=== PATIENT | male | born 1940 | race Caucasian/White ===

== ENCOUNTER 2018-12-04 09:32 | Outpatient (CLI) | payer OTHER ==
--- NOTE | 2018-12-04 11:38 | PET ---
EXAM: PET CT skull to mid thigh COMPARISON: None HISTORY: Lung mass/lung cancer TECHNIQUE: A PET/CT was performed from the skull to the mid thigh after administration of 11.9 millic uries of F-18 FDG. Evaluation was performed on a [employer] workstation. FINDINGS: NECK: No areas of hypermetabolic activity CHEST: 7.4 cm right hilar mass has a max SUV value of 19.2. Right upper lobe peripheral pulmonary nodule measuring 1.1 cm in size has a max SUV value of 2.6. 1.3 cm right lower lobe peripheral pulmonary nodule has a max SUV value of 2.7. 1.3 cm well-circumscribed mass along the anterior mediastinum has a max SUV value of 5.8. 3.2 cm subcarinal lymph node has a max SUV value of 11.2. 3.0 cm pretracheal lymph node has a maximum SUV value of 15.3. Small non hypermetabolic right pleural effusion. ABDOMEN/PELVIS: No areas of hypermetabolic activity. Calcified granulomas in the spleen. Numerous cys ts in the left kidney measuring up to 9.2 cm in size. SKELETON: Uptake in the paraspinal muscles of the back and gluteal regions likely is from movement du ring the exam. No suspicious areas of hypermetabolic activity IMPRESSION: 1. Right hilar mass with metastatic disease to the right hilar region and mediastinum as above. 2. Hypermetabolic peripheral pulmonary nodules in the right lung. These could represent metastatic di sease.
--- NOTE | 2018-12-04 12:57 | MRI ---
MRI BRAIN WITH AND WITHOUT CONTRAST: 12/04/18 HISTORY: 78-year-old male for staging of right lung cancer. TECHNIQUE: Multiple sequences obtained in axial, sagittal, and coronal planes; pre and post IV injection of gado linium-based contrast agent. FINDINGS: The ventricles are normal in size and configuration. There is no restricted diffusion, abnormal intr aaxial enhancement, mass, midline shift or any other mass effect, or recent intraaxial hemorrhage. T here are a few small T2-hyperintensities in the cerebral white matter consistent with mild chronic is chemic white matter changes due to mild microvascular atherosclerosis. There is a moderate sized arac hnoid cyst in the left middle cranial fossa. IMPRESSION: 1. Mild chronic ischemic white matter changes. 2. Incidental finding of arachnoid cyst in left middle cranial fossa. 3. No evidence of intracranial metastatic disease. jn[] POS: Christal
== END 2018-12-04 09:33 | disposition home or self-care (01) ==
LOC: PET 09:32
PROVIDERS: ATTEND Internal Medicine Hematology & Oncology
DX: C34.01 Malignant neoplasm of right main bronchus (principal); C78.1 Secondary malignant neoplasm of mediastinum; C78.01 Secondary malignant neoplasm of right lung; R91.1 Solitary pulmonary nodule
CPT/HCPCS: 70553; 78815; A9552

== ENCOUNTER 2019-03-13 09:36 | Outpatient (CLI) | payer MEDICARE, OTHER ==
--- NOTE | 2019-03-13 10:02 | RAD ---
XR Chest Pa Lat @ [facility] HISTORY: Dyspnea, lung cancer COMPARISON: None FINDINGS: The heart size is normal. The aorta is tortuous. The lungs are well expanded without focal areas of consolidation, pneumothorax or pleural effusions. IMPRESSION: No radiographic evidence of acute cardiopulmonary process.
== END 2019-03-13 09:37 | disposition home or self-care (01) ==
LOC: RAD 09:36
PROVIDERS: ATTEND Internal Medicine
DX: R06.00 Dyspnea, unspecified (principal)
CPT/HCPCS: 71046

== ENCOUNTER 2019-03-25 14:07 | Outpatient (CLI) | payer OTHER ==
--- NOTE | 2019-03-25 14:20 | PET ---
EXAM: PET CT skull to mid thigh COMPARISON: 12/04/2018 HISTORY: Malignant neoplasm of right mainstem bronchus TECHNIQUE: A PET/CT was performed from the skull to the mid thigh after administration of 11.6 millic uries of F-18 FDG. Evaluation was performed on a [employer] workstation. FINDINGS: NECK: No areas of hypermetabolic activity CHEST: No areas of intrathoracic hypermetabolic activity. There is a 1.1 cm hypermetabolic right axil goldie lymph node with max SUV value of 5.2. ABDOMEN/PELVIS: No areas of hypermetabolic activity SKELETON: No areas of hypermetabolic activity CT images used for attenuation correction show cysts in the left kidney. The patient is status post c holecystectomy. There are trace bilateral pleural effusions, right greater than left.. IMPRESSION: Hypermetabolic right axillary lymph node could represent metastatic disease.
== END 2019-03-25 14:08 | disposition home or self-care (01) ==
LOC: PET 14:07
PROVIDERS: ATTEND Internal Medicine Hematology & Oncology
DX: C34.01 Malignant neoplasm of right main bronchus (principal); C77.3 Secondary and unspecified malignant neoplasm of axilla and upper limb lymph nodes
CPT/HCPCS: 78815; A9552

== ENCOUNTER 2019-06-24 12:21 | Outpatient (CLI) | payer OTHER ==
--- NOTE | 2019-06-24 16:15 | PET ---
PET CT: 06/24/19 HISTORY: Malignant neoplasm of right brain bronchus. Lung cancer. Exam requested to evaluate for response to t reatment. Patient is status post chemotherapy. TECHNIQUE: PET scan using CT attenuation correction was performed from the base of the skull to the proximal th ighs following the intravenous administration of 12.7 millicuries of 15-fluorodeoxyglucose in the rig ht antecubital fossa. COMPARISON: PET scan of 03/25/19. No guy hypermetabolism is seen in the neck, chest, axillae, abdomen, pelvis or inguinal regions. N o hypermetabolic pulmonary nodules, liver, adrenal or skeletal lesions are seen. There is physiologic activity in the GI and tracts and the visualized portions of the brain. The CT scan used for attenuation correction demonstrates trace pleural effusions, left renal cysts, a nd colonic diverticulosis. There is interval development of a 15 mm semisolid nodule in the right upper lobe with an SUV of 1.5 . The previously noted 2 cm nodule inferomedial to this noted on the previous exam is stable and demo nstrates an SUV of 1.9. IMPRESSION: 1. No evidence of metastatic disease. 2. CT follow-up of the lung nodules is recommended in three months. Code T POS: SERENA
== END 2019-06-24 12:22 | disposition home or self-care (01) ==
LOC: PET 12:21
PROVIDERS: ATTEND Internal Medicine Hematology & Oncology
DX: C34.90 Malignant neoplasm of unspecified part of unspecified bronchus or lung (principal); R91.8 Other nonspecific abnormal finding of lung field
CPT/HCPCS: 78815; A9552

== ENCOUNTER 2019-09-16 10:42 | Outpatient (CLI) | payer OTHER ==
--- NOTE | 2019-09-16 12:53 | PET ---
Radionucleotide PET scan with CT attenuation correction HISTORY: Right upper lobe lung cancer. Restaging. COMPARISON: 06/24/2019 and 03/25/2019. FINDINGS: Physiologic uptake of radiotracer throughout the enteric system and along each urinary trac t. The 2.0 cm nodule within an area of scarring at the anterior aspect of the right upper lobe is unchanged in appearance morphologically. Max SUV 2.4 (previously 1.9). The non-hypermetabolic groundglass 1.0 cm nodule within the slightly more superior and lateral aspect of the right upper lobe is now 1.0 cm greatest AP diameter, smaller than 1.5 cm on the previous exam. No new nodules or hypermetabolic activity. There is prominent calcification throughout the arterial structures including coronary arteries. Tiny nonobstructing bilateral renal calculi. Large cyst at the inferior pole of the left kidney is stable. Diverticula arise from the colon without adjacent inflammation. IMPRESSION : Right upper lobe nodule, stable in size, shows slight interval increase in radionucleotide activity t hat remains less than hypermetabolic (maximum SUV 2.4). Slight interval decrease in size of the non-hypermetabolic groundglass nodule within the right upper lobe. No hypermetabolic adenopathy. Atherosclerosis. Tiny nonobstructing bilateral renal calculi. Diverticulosis. No evidence of diverticulitis.
== END 2019-09-16 10:43 | disposition home or self-care (01) ==
LOC: PET 10:42
PROVIDERS: ATTEND Internal Medicine Hematology & Oncology
DX: C34.11 Malignant neoplasm of upper lobe, right bronchus or lung (principal); R91.1 Solitary pulmonary nodule; I70.90 Unspecified atherosclerosis; N20.0 Calculus of kidney; K57.90 Diverticulosis of intestine, part unspecified, without perforation or abscess without bleeding
CPT/HCPCS: 78815; A9552

== ENCOUNTER 2020-03-16 08:42 | Outpatient (CLI) | payer OTHER ==
--- NOTE | 2020-03-16 11:02 | PET ---
EXAM: PET/CT HISTORY: History of lung cancer; evaluate response to treatment TECHNIQUE: PET scanning with CT attenuation correction was performed from the base of the brain to the proximal thighs following the intravenous administration of 12.1 millicuries [id number]. COMPARISON: Prior PET/CT dated dated December 19, 2019 and a CTA of the chest dated January 09, 2019 FINDINGS: Biodistribution:The biodistribution for the exam appears acceptable. Head and neck: There is appropriate background activity within the brain. No hypermetabolic lymphaden opathy or masses identified. Thorax: The spiculated nodule seen within the anterior right upper lobe is stable in size measuring 1 .9 cm with no hypermetabolic uptake. The peak uptake is 2.09. This is stable to the prior exam. The degree of subsegmental atelectasis involving the anterior right upper lobe appears stable. There is a n increasing focus of hypermetabolic activity involving a right suprahilar lymph node with a peak SUV activity measuring 4.82 and a mean activity measuring 4.49. Morphological size of the lymph node is difficult characterize without IV contrast. Previously the peak SUV activity was 3.47 with the previous mean activity of 3.2. Smaller sub-4 mm pulmonary nodules within the right upper lobe are sta ble. Areas of mild scarring and scattered emphysema are stable. Abdomen and pelvis: There is expected background activity within the GI and systems. No hypermetab olic mass, lymphadenopathy or ascites is present. Osseous structures and skin: No hypermetabolic skin or osseous lesion is identified. IMPRESSION: Abnormal PET/CT 1. Increasing hypermetabolic uptake involving his right suprahilar lymph node is suspicious for worse haley malignant lymphadenopathy. 2. The spiculated right upper lobe pulmonary nodule with postobstructive atelectasis is stable in siz e without hypermetabolic uptake. 3. No evidence of hypermetabolic metastatic disease involving the head neck, abdomen and pelvis, and skin and osseous structures.
== END 2020-03-16 08:43 | disposition home or self-care (01) ==
LOC: PET 08:42
PROVIDERS: ATTEND Internal Medicine Hematology & Oncology
DX: C34.90 Malignant neoplasm of unspecified part of unspecified bronchus or lung (principal); R91.1 Solitary pulmonary nodule; J98.11 Atelectasis
CPT/HCPCS: 78815; A9552

== ENCOUNTER 2020-06-10 08:34 | Outpatient (CLI) | payer OTHER | END 2020-06-10 08:35 | disposition home or self-care (01) | LOC: PET 08:34 | PROVIDERS: ATTEND Internal Medicine Hematology & Oncology | DX: C34.91 Malignant neoplasm of unspecified part of right bronchus or lung (principal); L98.9 Disorder of the skin and subcutaneous tissue, unspecified | CPT/HCPCS: 78815; A9552 ==

== ENCOUNTER 2020-09-17 08:49 | Outpatient (CLI) | payer OTHER | END 2020-09-17 08:50 | disposition home or self-care (01) | LOC: PET 08:49 | PROVIDERS: ATTEND Internal Medicine Hematology & Oncology | DX: C34.91 Malignant neoplasm of unspecified part of right bronchus or lung (principal) | CPT/HCPCS: 78815; A9552 ==

== ENCOUNTER 2021-03-18 10:23 | Outpatient (CLI) | payer OTHER | END 2021-03-18 10:24 | disposition home or self-care (01) | LOC: PET 10:23 | PROVIDERS: ATTEND Internal Medicine Hematology & Oncology | DX: C34.01 Malignant neoplasm of right main bronchus (principal); J98.4 Other disorders of lung | CPT/HCPCS: 78815; A9552 ==

== ENCOUNTER 2021-05-26 10:26 | Outpatient (CLI) | payer OTHER | END 2021-05-26 10:27 | disposition home or self-care (01) | LOC: PET 10:26 | PROVIDERS: ATTEND Internal Medicine Hematology & Oncology | DX: C34.90 Malignant neoplasm of unspecified part of unspecified bronchus or lung (principal) | CPT/HCPCS: 78815; A9552 ==